=== PATIENT | male | born 1995 | race Two or more races ===

== ENCOUNTER 2021-10-26 13:00 | Inpatient (IN) | payer MEDICAID, OTHER ==
[~2021-10-26] VITALS: Ht 188 cm; Wt 139.7 kg
[2021-10-26 13:56] LABS: Basophils # (auto) 0.1 10 ^3/uL (0-0.2); Basophils % (auto) 0.6 % (0.0-2.0); Eosinophils # (auto) 0.3 10 ^3/uL (0-0.8); Eosinophils % (auto) 3.1 % (0.0-7.0); Hemoglobin 15.3 g/dL (13.5-17.5); Lymphocytes # (auto) 3.4 10 ^3/uL (0.4-5.4); Lymphocytes % (auto) 30.9 % (10.0-50.0); Mean Corpuscular Hemoglobin 28.4 pg (28.0-32.0); Mean Corpuscular Hgb Conc. 32.5 g/dL (32.0-36.0); Mean Corpuscular Volume 87.2 fL (80.0-100.0); Monocytes # (auto) 0.7 10 ^3/uL (0-1.3); Monocytes % (auto) 6.1 % (0.0-12.0); Neutrophils # (auto) 6.5 10 ^3/uL (1.6-8.6); Neutrophils % (auto) 59.3 % (37.0-80.0); Nucleated Red Blood Cells % 0.1 %; Red Blood Cells 5.39 10^6/uL (4.5-5.90); Red Cell Distribution Width 14.6 % (11.8-14.3); White Blood Cell 10.9 10^3/uL (4.4-10.8)
[2021-10-26 14:10] LABS: Albumin 3.9 g/dL (3.4-5.0); Potassium 4.2 mmol/L (3.5-5.1)
[2021-10-26 14:15] LABS: BUN/Creatinine Ratio 13.1; Bilirubin, Total 0.4 mg/dL (0.2-1.0); Total Protein 7.6 g/dL (6.4-8.2)
[2021-10-26] MEDS ORDERED: SODIUM CHLORIDE 0.9% 1,000 ML IVB ONE (14:15)
[2021-10-26] MEDS ORDERED: KETOROLAC TROMETH 30 MG/ML 1ML VIAL IV ONE (14:15)
[2021-10-26 14:54] LABS: Urine Bacteria NONE SEEN /hpf (None Seen); Urine Blood 3+ /uL (Negative); Urine Mucus FEW (None Seen); Urine Specific Gravity 1.022 (1.001-1.035); Urine WBC 17 /hpf (0 - 3)
[2021-10-26] MEDS ORDERED: ACETAMINOPHEN 325 MG TAB PO PRN (21:45)
[2021-10-26] MEDS ORDERED: cefTRIAXone 1GM/50ML D5W 50 ML IV ONE (21:45)
[2021-10-26] MEDS ORDERED: TAMSULOSIN HYDROCHLORIDE 0.4 MG CAP PO ONE (21:45)
[2021-10-26] MEDS ORDERED: MORPHINE SULFATE INJ 2 MG/ml SYRG IV PRN (21:45)
[2021-10-26] MEDS ORDERED: SODIUM CHLORIDE 0.9% 1,000 ML IV ONE (21:45)
[2021-10-26] MEDS ORDERED: TEMAZEPAM 15 MG CAP PO PRN (21:45)
[2021-10-26] MEDS ORDERED: ONDANSETRON HCL 4 MG/2 ML VIAL IV PRN (21:45)
[2021-10-27] MEDS: HYDROcodone-ACET 5/325MG TAB PO PRN ×2 (02:15→10:13)
[2021-10-27 05:23] LABS: Basophils # (auto) 0.1 10 ^3/uL (0-0.2); Basophils % (auto) 0.6 % (0.0-2.0); Eosinophils # (auto) 0.1 10 ^3/uL (0-0.8); Eosinophils % (auto) 0.6 % (0.0-7.0); Hematocrit 43.3 % (41.0-53.0); Hemoglobin 14.2 g/dL (13.5-17.5); Lymphocytes # (auto) 2.6 10 ^3/uL (0.4-5.4); Lymphocytes % (auto) 18.1 % (10.0-50.0); Mean Corpuscular Hemoglobin 28.3 pg (28.0-32.0); Mean Corpuscular Hgb Conc. 32.7 g/dL (32.0-36.0); Mean Corpuscular Volume 86.5 fL (80.0-100.0); Monocytes # (auto) 2.1 10 ^3/uL (0-1.3); Neutrophils # (auto) 9.8 10 ^3/uL (1.6-8.6); Neutrophils % (auto) 66.7 % (37.0-80.0); Red Blood Cells 5.01 10^6/uL (4.5-5.90); Red Cell Distribution Width 14.6 % (11.8-14.3); White Blood Cell 14.6 10^3/uL (4.4-10.8)
[2021-10-27 05:44] LABS: BUN/Creatinine Ratio 13.7; Calcium 8.9 mg/dL (8.5-10.1); Potassium 3.6 mmol/L (3.5-5.1)
[2021-10-27] MEDS ORDERED: PANTOPRAZOLE 40 MG TAB PO SCH (10:00)
[2021-10-27] MEDS ORDERED: KETOROLAC TROMETH 30 MG/ML 1ML VIAL IV PRN (10:45)
[2021-10-27] MEDS ORDERED: TAMSULOSIN HYDROCHLORIDE 0.4 MG CAP PO ONE (11:00)
[2021-10-27] MEDS ORDERED: LEVO500T31 PO (12:44)
[2021-10-27] MEDS ORDERED: KETO10TA PO (12:44)
[2021-10-27] MEDS ORDERED: TAM04C PO (12:44)
[2021-10-27 15:41] VITALS: BP 144/80
[2021-10-27] MEDS ORDERED: cefTRIAXone 1GM/50ML D5W 50 ML IV SCH (21:00)
== END 2021-10-27 15:33 | disposition home or self-care (01) | DRG 463 ==
LOC: ER 13:00 → OVERFLOW 22:12
PROVIDERS: ADMIT Nurse Practitioner; ATTEND Internal Medicine
DX: N13.6 Pyonephrosis (principal); R65.10 Systemic inflammatory response syndrome (SIRS) of non-infectious origin without acute organ dysfunction; E66.01 Morbid (severe) obesity due to excess calories; F32.A Depression, unspecified; Z20.822 Contact with and (suspected) exposure to COVID-19; Q63.1 Lobulated, fused and horseshoe kidney; Z83.3 Family history of diabetes mellitus; Z68.39 Body mass index [BMI] 39.0-39.9, adult
CPT/HCPCS: 36415; 74176; 80048; 80053; 81001; 85025; 96361; 96365; 96375; G0378; J0696; J1885

== ENCOUNTER 2024-05-18 03:29 | Emergency (ER) | payer MEDICAID ==
[~2024-05-18] VITALS: Ht 188 cm; Wt 146.3 kg
[~2024-05-18 03:29] MED LIST: KETO10TA PO; LEVO500T31 PO; TAMS-35 PO
[2024-05-18 04:03] LABS: Urine Bacteria None Seen /hpf (None Seen)
[2024-05-18 04:20] LABS: Urine Blood TRACE /uL (Negative); Urine Clarity Clear (Clear); Urine Color Light-Yellow (Yellow); Urine Protein, UAD Negative (Negative); Urine Specific Gravity 1.017 (1.001-1.035); Urine Squamous Epithelial Cell None Seen /hpf (<5); Urine Urobilinogen Normal (Negative); Urine WBC < 1 /HPF (0-3)
--- NOTE | 2024-05-18 04:32 | ED.PDOC ---
GI ASSESSMENT HPI Comments 29 year old male presents to the ED with a chief complaint of abdominal pain onset 2 weeks. Patient states he has been experiencing constant, diffused abdominal pain for the past 2 weeks, noticed pain worsens after eating. He has been trying to treat with Pepto-Bismol with no improvement of symptoms. Patient also noticed urinary frequency. PMHx HTN, kidney stones, depression. Denies nausea, vomiting, diarrhea, fever, chills. constipation, chest pain, shortness of breath, dysuria, hematuria. No other symptoms or modifying factors present at this time. Chief Complaint: Abdominal Pain Time Seen by MD: 04:03 Primary Care Provider: NONE Reviewed Notes: Medications, Allergies Allergies: Coded Allergies: NO KNOWN ALLERGIES (Unverified , 10/26/21) Home Meds Active Scripts Tamsulosin Hcl (Flomax) 0.4 Mg Cap, 0.4 MG PO QPM for 10 Days, #10 CAP Prov:MICHAEL SALCEDO MD 10/27/21 Ketorolac Tromethamine (Ketorolac Tromethamine) 10 Mg Tab, 10 MG PO TID PRN for 5 Days, #15 TAB Prov:MICHAEL SALCEDO MD 10/27/21 Levofloxacin (Levaquin) 500 Mg Tab, 500 MG PO DAILY for 7 Days, #7 TAB Prov:MICHAEL SALCEDO MD 10/27/21 Information Source: Patient Mode of Arrival: Ambulatory Timing: Weeks Duration: Since onset Prehospital treatment: Other (Pepto-Bismol ) Quality: Aching Vomitus: None Severity: Moderate Recent: None Recent Hx of: None Pain Location: Diffuse Modifying Factors: Nothing Associated sign and symptoms: Abdominal Pain Past Medical History PAST MEDICAL HISTORY: Depression, HTN, Kidney Stones Surgical History: Denies all surgeries Family History Family History: Family hx of DM Social History Smoker: Non-Smoker Alcohol: Denies ETOH Use Drugs: Denies Drug Use Lives In: Home Constitutional: denies: chills, diaphoresis, fatigue, fever, malaise, sweats, weakness, others EENTM: denies: blurred vision, double vision, ear bleeding, ear discharge, ear drainage, ear pain, ear ringing, eye pain, eye redness, hearing loss, mouth pain, mouth swelling, nasal discharge, nose bleeding, nose congestion, nose pain, photophobia, tearing, throat pain, throat swelling, voice changes, others Respiratory: denies: cough, hemoptysis, orthopnea, SOB at rest, shortness of breath, SOB with excertion, stridor, wheezing, others Cardiovascular: denies: chest pain, dizzy spells, diaphoresis, Dyspnea on exertion, edema, irregular heart beat, left arm pain, lightheadedness, palpitations, PND, syncope, others Gastrointestinal: reports: abdominal pain; denies: abdomen distended, blood streaked bowels, constipated, diarrhea, dysphagia, difficulty swallowing, hematemesis, melena, nausea, poor appetite, poor fluid intake, rectal bleeding, rectal pain, vomiting, others Genitourinary: reports: frequency; denies: burning, dysuria, flank pain, hematuria, incontinence, penile discharge, penile sore, pain, testicle pain, testicle swelling, urgency, others Neurological: denies: dizziness, fainting, headache, left sided numbness, left sided weakness, numbness, paresthesia, pre-existing deficit, right sided numbness, right sided weakness, seizure, speech problems, tingling, tremors, weakness, others Musculoskeletal: denies: back pain, gout, joint pain, joint swelling, muscle pain, muscle stiffness, neck pain, others Integumetry: denies: bruises, change in color, change in hair/nails, dryness, laceration, lesions, lumps, rash, wounds, others Allergic/Immunocompromised: denies: Difficulty Healing, Frequent Infections, Hives, Itching, others Hematologic/Lymphatic: denies: anemia, blood clots, easy bleeding, easy bruising, swollen glands, others Endocrine: denies: excessive hunger, excessive sweating, excessive thirst, excessive urination, flushing, intolerance to cold, intolerance to heat, unexplained weight gain, unexplained weight loss, others Psychiatric: denies: anxiety, bipolar disorder, depression, hopeless, panic disorder, schizophrenia, sleepless, suicidal, others All Other Systems: Reviewed and Negative Physical Exam General Appearance: No Apparent Distress, Obese HEENT: Other (Moist mucous membranes) Neck: Full Range of Motion, Non-Tender, Normal Inspection, Supple Respiratory: Lungs Clear, No Accessory Muscle Use, No Respiratory Distress, Normal Breath Sounds Cardiovascular: No Edema, No JVD, Regular Rate/Rhythm Breast Exam: Deferred Gastrointestinal: Non Tender, Soft Genitalia: Deferred Pelvic: Deferred Rectal: Deferred Extremities: Normal inspection, Normal range of motion, Non-tender, No pedal edema Neurologic: Alert (Oriented x4), Normal Affect, Normal Mood, Other (Ambulatory without difficulty. No gross focal deficit.) Cerebellar Function: NOT DONE Reflexes: NOT DONE Skin: Dry, Normal Color, Warm Lymphatic: NOT DONE Was a procedure done? Was a procedure done?: No GI differential Dx Differential Diagnosis: Constipation, Diverticular disease, Gastritis/PUD, Gastroenteritis, Inflammatory BD, Ischemic Bowel, UTI, Urolithiasis, Dehydration, Electrolyte Imbalance, Bacterial, Parasitic, Viral, Impaction, Stress Ulcer, Kidney Stone X-Ray, Labs, Meds, VS Vital Signs Date Time Temp Pulse Resp B/P (MAP) Pulse Ox O2 Delivery O2 Flow Rate FiO2 05/18/24 05:11 98.2 90 14 155/97 (116) 96 98.2 05/18/24 03:53 98.7 95 18 149/101 (117) 98 Lab Test 05/18/24 04:21 05/18/24 04:00 Range/Units White Blood Count 14.3 H 4.4-10.8 10^3/uL Red Blood Count 5.52 4.5-5.90 10^6/uL Hemoglobin 16.2 13.5-17.5 g/dL Hematocrit 48.1 41.0-53.0 % Mean Corpuscular Volume 87.2 80.0-100.0 fL Mean Corpuscular Hemoglobin 29.4 28.0-32.0 pg Mean Corpuscular Hemoglobin Concent 33.7 32.0-36.0 g/dL Red Cell Distribution Width 14.3 11.8-14.3 % Platelet Count 292 140-450 10^3/uL Mean Platelet Volume 7.8 6.9-10.8 fL Neutrophils (%) (Auto) 42.0 37.0-80.0 % Lymphocytes (%) (Auto) 43.3 10.0-50.0 % Monocytes (%) (Auto) 10.1 0.0-12.0 % Eosinophils (%) (Auto) 4.0 0.0-7.0 % Basophils (%) (Auto) 0.6 0.0-2.0 % Neutrophils # (Auto) 6.0 1.6-8.6 10 ^3/uL Lymphocytes # (Auto) 6.2 H 0.4-5.4 10 ^3/uL Monocytes # (Auto) 1.4 H 0-1.3 10 ^3/uL Eosinophils # (Auto) 0.6 0-0.8 10 ^3/uL Basophils # (Auto) 0.1 0-0.2 10 ^3/uL Nucleated Red Blood Cells 0.1 % Sodium Level 138 136-145 mmol/L Potassium Level 4.0 3.5-5.1 mmol/L Chloride Level 108 H 98-107 mmol/L Carbon Dioxide Level 21 20-31 mmol/L Anion Gap 9 5-15 Blood Urea Nitrogen 10 9-23 mg/dL Creatinine 0.70 0.700-1.30 mg/dL Glomerular Filtration Rate Calc 129 >90 mL/min BUN/Creatinine Ratio 14.3 10.0-20.0 Serum Glucose 99 74-106 mg/dL Calcium Level 10.2 8.7-10.4 mg/dL Total Bilirubin 0.6 0.2-1.0 mg/dL Aspartate Amino Transferase (AST) 26 13-40 U/L Alanine Aminotransferase (ALT) 61 H 7-40 U/L Alkaline Phosphatase 93 46-116 U/L Total Protein 7.6 5.7-8.2 g/dL Albumin 4.9 H 3.2-4.8 g/dL Lipase 33 12-53 U/L Urine Color Light-yellow Yellow Urine Clarity Clear Clear Urine pH 6.0 5.0-9.0 Urine Specific [place] 1.017 1.001-1.035 Urine Protein Negative Negative Urine Ketones Negative Negative Urine Blood Trace H Negative /uL Urine Nitrite Negative Negative Urine Bilirubin Negative Negative Urine Urobilinogen Normal Negative mg/dL Urine Leukocyte Esterase Negative Negative /uL Urine RBC 1 0 - 3 /hpf Urine Microscopic WBC < 1 0-3 /HPF Urine Squamous Epithelial Cells None seen <5 /hpf Urine Bacteria None seen None Seen /hpf Urine Glucose Normal Normal mg/dL ORDERING PHYSICIAN: MARYANNE EDEN MD PROCEDURE(s): ABPL - CT AB PEL WO CON-NO ORAL OR IV REASON: mid abdominal pain ORDER NUMBER(s): [id number], ACCESSION NUMBER(s): [id number] Exam: CT CT AB PEL WO CON-NO ORAL OR IV History: mid abdominal pain Comparison Study: CT scan of the abdomen pelvis dated 10/26/2021. Technique: Multidetector spiral CT of the abdomen and pelvis was performed from lung bases to pubic symphysis. Imaging was performed without intravenous contrast. Coronal and sagittal multiplanar reformats were obtained from the axial data set by the technologist. Radiation Dose : 1. Abdomen/Pelvis: CTDIvol 27.3 mGy, DLP 1888.1 mGy*cm. Findings: Evaluation of vasculature and solid organs is limited due to lack of intravenous contrast use. Lung Bases: Lung bases are clear. Visualized portions of the heart and pericardium are unremarkable. Liver: The liver is normal in size. No focal lesions. Gallbladder and Biliary Tree: The gallbladder is unremarkable. No intrahepatic or extrahepatic biliary ductal dilatation. Spleen: Unremarkable Pancreas: The pancreas is grossly unremarkable. Adrenal Glands: Unremarkable Kidneys: Horseshoe kidney. Punctate nonobstructive calculus in the right moiety. Punctate nonobstructive calculus in the left moiety. GI tract: The stomach is grossly normal in appearance. No evidence of small bowel wall thickening or abnormal dilatation to suggest bowel obstruction. The colon is unremarkable. The appendix is not visualized, however no inflammatory changes in the right lower quadrant to suggest acute appendicitis. Peritoneum/mesentery/retroperitoneum. No evidence of free intraperitoneal air. No ascites. No evidence of suspicious lymphadenopathy. Abdominal Wall: Fat containing umbilical hernia. Vasculature: The visualized abdominal aorta is normal in size and caliber. Evaluation of abdominal and pelvic vessels is limited due to lack of intravenous contrast. Urinary Bladder: Grossly unremarkable for degree of distention. Pelvic Organs: Unremarkable Musculoskeletal: No aggressive focal bony lesions, acute fractures or dislocation. IMPRESSION: 1. No acute abdominal or pelvic findings. 2. Horseshoe kidney. Punctate nonobstructive intrarenal calculi in both kidneys. ATED BY: ANTOINETTE EATON MD DICTATED DATE/TIME: 05/18/24458 SIGNED BY: ANTOINETTE EATON MD SIGNED DATE/TIME: 05/18/24458 X-Ray, Labs, Meds, VS Comment 29-year-old male with a history of hypertension and kidney stones complaining of abdominal pain Vitals remarkable for BP 149/101 Exam unremarkable Rhythm strip independently interpreted by me: Sinus rhythm, rate 95, no ectopy. CT abdomen and pelvis: IMPRESSION: 1. No acute abdominal or pelvic findings. 2. Horseshoe kidney. Punctate nonobstructive intrarenal calculi in both kidneys. CBC remarkable for WBC 14.3, CMP remarkable for ALT 61, lipase normal, UA unremarkable Patient treated with the following in the ED: Protonix 40 mg IV, viscous lidocaine 10 mL, 10 mL, Maalox 30 mL p.o.. On re-evaluation, patient states pain has improved. Vitals are stable. Repeat abdominal exam remains benign. Hospitalization was considered, however patient had rapid improvement of sy mptoms with treatment in the ED, and I no longer feel hospitalization is necessary. Patient now appears stable for discharge with close outpatient follow-up with his primary physician for referral to a GI specialist. Rx omeprazole, Bentyl Time of 1ST Reevaluation: 04:33 Reevaluation 1ST: Unchanged Patient Education/Counseling: Diagnosis, Treatment, Prognosis Family Education/Counseling: No Family Present Additional Information The following tests were ordered, and results were reviewed by me: UA, CBC, CMP, LIPASE, CT AB PEL WO CONTRAST I reviewed and agreed with the following test results read by other providers: CT AB PEL WO CONTRAST I discussed treatment and results with medical personnel and: patient, Departure 1 Departure Time of Disposition: 05:33 Impression: Primary Impression: Abdominal pain Qualified Codes: R10.84 - Generalized abdominal pain Disposition: 01 HOME / SELF CARE / HOMELESS Condition: Stable Additional Instructions: Your blood and urine tests were unremarkable. Your CT scan showed a horseshoe kidney and kidney stones. These are incidental findings, do not require any acu te treatment, and are unlikely the cause of your abdominal pain. I have prescribed medication to treat your symptoms. Follow-up with your primary doctor in 1-2 days for referral to a global [facility] [employer] for further evaluation of your abdominal symptoms. Return to ER for persistent or worsening pain. [place] [address] Ph: [phone] DIAGNOSTIC IMAGING Diagnostic Imaging Report : [id number] Signed PATIENT: ALINA GARCIA ACCT: [id number] UNIT: [id number] : 1995 LOC: ER ROOM / BED: / AGE / SEX: 29 / M ADM STATUS: REG ER SERVICE [id number] ORDERING PHYSICIAN: MARYANNE EDEN MD PROCEDURE(s): ABPL - CT AB PEL WO CON-NO ORAL OR IV REASON: mid abdominal pain ORDER NUMBER(s): [id number], ACCESSION NUMBER(s): [id number] Exam: CT CT AB PEL WO CON-NO ORAL OR IV History: mid abdominal pain Comparison Study: CT scan of the abdomen pelvis dated 10/26/2021. Technique: Multidetector spiral CT of the abdomen and pelvis was performed from lung bases to pubic symphysis. Imaging was performed without intravenous contrast. Coronal and sagittal multiplanar reformats were obtained from the axial data set by the technologist. Radiation Dose : 1. Abdomen/Pelvis: CTDIvol 27.3 mGy, DLP 1888.1 mGy*cm. Findings: Evaluation of vasculature and solid organs is limited due to lack of intravenous contrast use. Lung Bases: Lung bases are clear. Visualized portions of the heart and pericardium are unremarkable. Liver: The liver is normal in size. No focal lesions. Gallbladder and Biliary Tree: The gallbladder is unremarkable. No intrahepatic or extrahepatic biliary ductal dilatation. Spleen: Unremarkable Pancreas: The pancreas is grossly unremarkable. Adrenal Glands: Unremarkable Kidneys: Horseshoe kidney. Punctate nonobstructive calculus in the right moiety. Punctate nonobstructive calculus in the left moiety. GI tract: The stomach is grossly normal in appearance. No evidence of small bowel wall thickening or abnormal dilatation to suggest bowel obstruction. The colon is unremarkable. The appendix is not visualized, however no inflammatory changes in the right lower quadrant to suggest acute appendicitis. Peritoneum/mesentery/retroperitoneum. No evidence of free intraperitoneal air. No ascites. No evidence of suspicious lymphadenopathy. Abdominal Wall: Fat containing umbilical hernia. Vasculature: The visualized abdominal aorta is normal in size and caliber. Evaluation of abdominal and pelvic vessels is limited due to lack of intravenous contrast. Urinary Bladder: Grossly unremarkable for degree of distention. Pelvic Organs: Unremarkable Musculoskeletal: No aggressive focal bony lesions, acute fractures or dislocation. IMPRESSION: 1. No acute abdominal or pelvic findings. 2. Horseshoe kidney. Punctate nonobstructive intrarenal calculi in both kidneys. e-Prescriptions Dicyclomine Hcl (BENTYL CAPSULE) 10 Mg Cp 2 CAP PO Q6HP PRN, #60 CAP 11 Refills prn abdominal pain Prov: MARYANNE EDEN MD 05/18/24 Omeprazole Magnesium (Omeprazole) 20 Mg Tab 20 MG PO DAILY, #30 TAB Prov: MARYANNE EDEN MD 05/18/24 Discharged With: Self Critical Care Note Critical Care Time?: No Stability Stability form required: No Heart Score Heart Score: Heart Score Response (Comments) Value History N/A 0 EKG N/A 0 Age N/A 0 Risk Factors N/A 0 Troponin N/A 0 Total 0 I personally scribed for MARYANNE EDEN MD ([email or web address]) on 05/18/24 at 04:32. Electronically submitted by Ronda Henry ([email or web address]). I personally scribed for MARYANNE EDEN MD ([email or web address]) on 05/18/24 at 04:48. Electronically submitted by Ronda Henry ([email or web address]). I personally scribed for MARYANNE EDEN MD ([email or web address]) on 05/18/24 at 05:19. Electronically submitted by Ronda Henry ([email or web address]). MARYANNE EDEN MD May 18, 2024 04:32
[2024-05-18 04:41] LABS: Basophils # (auto) 0.1 10 ^3/uL (0-0.2); Basophils % (auto) 0.6 % (0.0-2.0); Eosinophils # (auto) 0.6 10 ^3/uL (0-0.8); Hematocrit 48.1 % (41.0-53.0); Hemoglobin 16.2 g/dL (13.5-17.5); Lymphocytes # (auto) 6.2 10 ^3/uL (0.4-5.4); Lymphocytes % (auto) 43.3 % (10.0-50.0); Mean Corpuscular Hemoglobin 29.4 pg (28.0-32.0); Mean Corpuscular Hgb Conc. 33.7 g/dL (32.0-36.0); Mean Corpuscular Volume 87.2 fL (80.0-100.0); Monocytes # (auto) 1.4 10 ^3/uL (0-1.3); Monocytes % (auto) 10.1 % (0.0-12.0); Nucleated Red Blood Cells % 0.1 %; Platelet Count (auto) 292 10^3/uL (140-450); Red Blood Cells 5.52 10^6/uL (4.5-5.90); Red Cell Distribution Width 14.3 % (11.8-14.3); White Blood Cell 14.3 10^3/uL (4.4-10.8)
[2024-05-18 04:59] LABS: Alkaline Phosphatase 93 U/L (46-116); Anion Gap 9 (5-15); Aspartate Aminotransferase 26 U/L (13-40); BUN/Creatinine Ratio 14.3 (10.0-20.0); Bilirubin, Total 0.6 mg/dL (0.2-1.0); Blood Urea Nitrogen 10 mg/dL (9-23); Calcium 10.2 mg/dL (8.7-10.4); Carbon Dioxide 21 mmol/L (20-31); Glucose 99 mg/dL (74-106); Lipase 33 U/L (12-53); Sodium 138 mmol/L (136-145); Total Protein 7.6 g/dL (5.7-8.2)
--- NOTE | 2024-05-18 05:02 | DVH ---
Exam: CT CT AB PEL WO CON-NO ORAL OR IV History: mid abdominal pain Comparison Study: CT scan of the abdomen pelvis dated 10/26/2021. Technique: Multidetector spiral CT of the abdomen and pelvis was performed from lung bases to pubic s ymphysis. Imaging was performed without intravenous contrast. Coronal and sagittal multiplanar refor mats were obtained from the axial data set by the technologist. Radiation Dose : 1. Abdomen/Pelvis: CTDIvol 27.3 mGy, DLP 1888.1 mGy*cm. Findings: Evaluation of vasculature and solid organs is limited due to lack of intravenous contrast use. Lung Bases: Lung bases are clear. Visualized portions of the heart and pericardium are unremarkable. Liver: The liver is normal in size. No focal lesions. Gallbladder and Biliary Tree: The gallbladder is unremarkable. No intrahepatic or extrahepatic bilia ry ductal dilatation. Spleen: Unremarkable Pancreas: The pancreas is grossly unremarkable. Adrenal Glands: Unremarkable Kidneys: Horseshoe kidney. Punctate nonobstructive calculus in the right moiety. Punctate nonobstruc tive calculus in the left moiety. GI tract: The stomach is grossly normal in appearance. No evidence of small bowel wall thickening or abnormal dilatation to suggest bowel obstruction. The colon is unremarkable. The appendix is not vi sualized, however no inflammatory changes in the right lower quadrant to suggest acute appendicitis. Peritoneum/mesentery/retroperitoneum. No evidence of free intraperitoneal air. No ascites. No evidenc e of suspicious lymphadenopathy. Abdominal Wall: Fat containing umbilical hernia. Vasculature: The visualized abdominal aorta is normal in size and caliber. Evaluation of abdominal a nd pelvic vessels is limited due to lack of intravenous contrast. Urinary Bladder: Grossly unremarkable for degree of distention. Pelvic Organs: Unremarkable Musculoskeletal: No aggressive focal bony lesions, acute fractures or dislocation. IMPRESSION: 1. No acute abdominal or pelvic findings. 2. Horseshoe kidney. Punctate nonobstructive intrarenal calculi in both kidneys.
[2024-05-18 05:03] LABS: Alanine Aminotransferase 61 U/L (7-40); Albumin 4.9 g/dL (3.2-4.8); Chloride 108 mmol/L (98-107)
[2024-05-18 05:11] VITALS: BP 155/97; PULSE 90; RESP 14; TEMP 98.2; O2SAT 96
[2024-05-18] MEDS ORDERED: OMEP-434 PO (05:36)
[2024-05-18] MEDS ORDERED: DICY10CA PO (05:36)
[2024-05-18] MEDS: DONNATAL 5ml ORAL Elix (BELLADONNA ALK-PHENOBARB) PO ONE (05:37)
[2024-05-18] MEDS: PANTOPRAZOLE 40 MG/10 ML VIAL INJ IV ONE (05:42)
[2024-05-18] MEDS: MAALOX PLUS or MAALOX 30 ML PO ONE (05:42)
[2024-05-18] MEDS: LIDOCAINE VISCOUS 2% 15ML UD PO ONE (05:42)
== END 2024-05-18 05:53 | disposition home or self-care (01) ==
LOC: ER 03:29
DX: R10.84 Generalized abdominal pain (principal); I10 Essential (primary) hypertension; F32.9 Major depressive disorder, single episode, unspecified; Z87.442 Personal history of urinary calculi
CPT/HCPCS: 36415; 74176; 80053; 81001; 83690; 85025; 96374; 99285; J2470

== ENCOUNTER 2024-07-07 02:34 | Emergency (ER) | payer MEDICAID ==
[~2024-07-07] VITALS: Ht 188 cm; Wt 145.5 kg
[~2024-07-07 02:34] MED LIST changes: +DICY10CA PO; +OMEP-434 PO
--- NOTE | 2024-07-07 03:48 | ED.PDOC ---
Back pain HPI HPI Comments Pt presents to the ER due to back pain x3 weeks. Pt reports he had a cough x3 weeks ago and feels he "threw his back out." Pt states he was seen at urgent care 1 week ago was prescribed naproxen, gabapentin, and methocarbamol he reports no relief in lower back pain. Denies numbness, weakness, loss of bowel or bladder control, foot drop, saddle anesthesia, or known significant injury Chief Complaint: Back Pain Time Seen by MD: 02:45 Primary Care Provider: Dr. Maritza Rhoades Reviewed Notes: Nurses Notes, Medications, Allergies Allergies: Coded Allergies: NO KNOWN ALLERGIES (Unverified , 10/26/21) Home Meds Active Scripts Dicyclomine Hcl (BENTYL CAPSULE) 10 Mg Cp, 2 CAP PO Q6HP PRN, #60 CAP 11 Refills prn abdominal pain Prov:MARYANNE EDEN MD 05/18/24 Omeprazole Magnesium (Omeprazole) 20 Mg Tab, 20 MG PO DAILY, #30 TAB Prov:MARYANNE EDEN MD 05/18/24 Tamsulosin Hcl (Flomax) 0.4 Mg Cap, 0.4 MG PO QPM for 10 Days, #10 CAP Prov:MICHAEL SALCEDO MD 10/27/21 Ketorolac Tromethamine (Ketorolac Tromethamine) 10 Mg Tab, 10 MG PO TID PRN for 5 Days, #15 TAB Prov:MICHAEL SALCEDO MD 10/27/21 Levofloxacin (Levaquin) 500 Mg Tab, 500 MG PO DAILY for 7 Days, #7 TAB Prov:MICHAEL SALCEDO MD 10/27/21 Information Source: Patient Mode of Arrival: Ambulatory Past Medical History PAST MEDICAL HISTORY: Depression, HTN, Kidney Stones Surgical History: Denies all surgeries Family History Family History: Family hx of DM Social History Smoker: Non-Smoker Alcohol: Denies ETOH Use Drugs: Denies Drug Use Lives In: Home Constitutional: denies: chills, diaphoresis, fatigue, fever, malaise, sweats, weakness, others EENTM: denies: blurred vision, double vision, ear bleeding, ear discharge, ear drainage, ear pain, ear ringing, eye pain, eye redness, hearing loss, mouth pain, mouth swelling, nasal discharge, nose bleeding, nose congestion, nose pain, photophobia, tearing, throat pain, throat swelling, voice changes, others Respiratory: denies: cough, hemoptysis, orthopnea, SOB at rest, shortness of breath, SOB with excertion, stridor, wheezing, others Cardiovascular: denies: chest pain, dizzy spells, diaphoresis, Dyspnea on exertion, edema, irregular heart beat, left arm pain, lightheadedness, palpitations, PND, syncope, others Gastrointestinal: denies: abdomen distended, abdominal pain, blood streaked bowels, constipated, diarrhea, dysphagia, difficulty swallowing, hematemesis, melena, nausea, poor appetite, poor fluid intake, rectal bleeding, rectal pain, vomiting, others Neurological: denies: dizziness, fainting, headache, left sided numbness, left sided weakness, numbness, paresthesia, pre-existing deficit, right sided numbness, right sided weakness, seizure, speech problems, tingling, tremors, weakness, others Musculoskeletal: reports: back pain; denies: gout, joint pain, joint swelling, muscle pain, muscle stiffness, neck pain, others Integumetry: denies: bruises, change in color, change in hair/nails, dryness, laceration, lesions, lumps, rash, wounds, others Allergic/Immunocompromised: denies: Difficulty Healing, Frequent Infections, Hives, Itching, others Hematologic/Lymphatic: denies: anemia, blood clots, easy bleeding, easy br uising, swollen glands, others Endocrine: denies: excessive hunger, excessive sweating, excessive thirst, excessive urination, flushing, intolerance to cold, intolerance to heat, unexplained weight gain, unexplained weight loss, others Psychiatric: denies: anxiety, bipolar disorder, depression, hopeless, panic disorder, schizophrenia, sleepless, suicidal, others Physical Exam General Appearance: No Apparent Distress, Normal HEENT: Pharynx Normal Neck: Full Range of Motion, Non-Tender Respiratory: Lungs Clear, No Respiratory Distress, Normal Breath Sounds Cardiovascular: No Murmur, Normal Peripheral Pulses, Regular Rate/Rhythm Breast Exam: Deferred Gastrointestinal: Non Tender, Soft Genitalia: Deferred Pelvic: Deferred Rectal: Deferred Extremities: Normal capillary refill, Normal inspection, Normal range of motion, Non-tender, No pedal edema Musculoskeletal : Location: Bilateral Extremity Location: Back (Tenderness noted over bilateral lower back musculature no tenderness palpated over L1 through L5 negative straight leg raise bilateral strength sensory motion intact positive pedal pulses) Apperance: Normal Neurologic: Alert, education consultant II-XII nml as Tested, No Motor Deficits, Normal Affect, Normal Mood, No Sensory Deficits Cerebellar Function: Normal Reflexes: Normal Skin: Dry, Normal Color, Warm Lymphatic: No Adenopathy Was a procedure done? Was a procedure done?: No Back Pain Differential Dx Differential Diagnosis: Fracture, Musculoskeletal Pain X-Ray, Labs, Meds, VS Vital Signs Date Time Temp Pulse Resp B/P (MAP) Pulse Ox O2 Delivery O2 Flow Rate FiO2 07/07/24 03:58 99.0 81 18 134/91 (105) 96 99.0 07/07/24 03:58 81 18 96 Room Air 07/07/24 02:48 98.1 79 16 149/109 (122) 97 98.1 Current Medications Medications (Trade) Dose Ordered Sig/Kristen Route Start Time Stop Time Status Last Admin Ketorolac Tromethamine (Toradol Injection) 60 mg ONCE ONCE IM 07/07/24 03:45 07/07/24 03:46 DC 07/07/24 03:52 Methylprednisolone Sodium Succinate (Solu Medrol) 125 mg ONCE ONCE IM 07/07/24 03:45 07/07/24 03:46 DC 07/07/24 03:53 Acetaminophen/ Hydrocodone Bitart ([place] 5/325MG Tab) 2 tab ONCE ONCE PO 07/07/24 03:45 07/07/24 03:46 DC 07/07/24 03:52 X-Ray, Labs, Meds, VS Comment FOR SPINE X-RAY SHOWS NO OSSEOUS LESIONS, SUBLUXATIONS THERE HAS BEEN SHOULD POSSIBLE FRACTURE OF THE COCCYX CT SCAN WAS RECOMMENDED RESULTED SHOWS NO ACUTE FRACTURES NO SUSPICIOUS LESIONS. CONCERNS. PATIENT WAS GIVEN TORADOL 60 MG IM DECADRON 10 MG IM AND NORCO 10 MG P.O. HE REPORTS IMPROVEMENT IN PAIN SYMPTOMS REQUESTING DISCHARGE AT THIS TIME. ADVISED HIM TO CONTINUE THE MUSCLE RELAXANT HE HAS BEEN HOME PRESCRIBED ADVISED TO FOLLOW UP WITH HIS PCP IN 1-2 DAYS CONSIDER FURTHER IMAGING SAYS HE WAS MRIS THAT THIS PERSIST. ADVISED TO RETURN TO THE OFF INCREASING PAIN, NUMBNESS, WEAKNESS SADDLE ANESTHESIA, LOSS OF BOWEL OR BLADDER CONTROL, OR FOOT DROP. PATIENT INDICATES UNDERSTANDING AND AGREES WITH DISCHARGE PLAN OF CARE. Time of 1ST Reevaluation: 03:48 Reevaluation 1ST: Unchanged Time of 2ND Reevaluation: 06:25 Reevaluation 2ND: Improved Patient Education/Counseling: Diagnosis, Treatment, Prognosis, Need For Follow Up Family Education/Counseling: Diagnosis, Treatment, Prognosis, Need For Follow Up Departure 1 Departure Time of Disposition: 06:23 Impression: Primary Impression: Lumbar sprain Qualified Codes: S33.5XXA - Sprain of ligaments of lumbar spine, initial encounter Disposition: HOME / SELF CARE / HOMELESS Condition: Stable Discharged With: Self Critical Care Note Critical Care Time?: No Stability Stability form required: ABIEL Sprague Jul 07, 2024 03:48
[2024-07-07] MEDS: HYDROcodone-ACET 5/325MG TAB PO ONE (03:52)
[2024-07-07] MEDS: KETOROLAC TROMETH 60MG/2ML VIAL IM ONE (03:52)
[2024-07-07] MEDS: methylPREDNISolone SOD SUCC 125 MG/2 ML VL IM ONE (03:53)
[2024-07-07 03:58] VITALS: BP 134/91; PULSE 81; RESP 18; TEMP 99; O2SAT 96
--- NOTE | 2024-07-07 05:02 | DVH ---
INDICATION: low back pain COMPARISON: None TECHNIQUE: 3 views of the lumbar spine were obtained. FINDINGS: The lumbar vertebral alignment is normal. The intervertebral disc spaces are well-maintained. No significant facet arthropathy is noted. Vertebral body heights in the lumbar spine are maintained. No acute fracture. There is angulation de formity of the coccyx. This could be congenital however fracture is not excluded. The paravertebral soft tissues are grossly unremarkable. IMPRESSION: 1. Angulation deformity in the coccyx for which fracture and/or malalignment is not excluded. CT of the sacrum including the coccyx is recommended.
--- NOTE | 2024-07-07 06:14 | DVH ---
Exam: CT PELVIS WO CONTRAST History: Questionable finding on lumbar x-ray of coccyx Comparison Study: Radiographs of the lumbar spine performed same date. TECHNIQUE: Multidetector CT of the pelvis was performed from the iliac crests through the proximal fe murs. Imaging was performed without IV contrast using axial images. Coronal and sagittal reformats we re obtained from the axial data set by the technologist. Radiation Dose Information: CT Dose: CTDI volume is 38.9 mGy. Dose-length product is 1273.4 mGy*cm FINDINGS: Bones /joints: No acute fracture. Specifically, no coccygeal or sacral fracture. Anterior angulation of the coccyx at the sacrococcygeal junction is noted. Joint spaces are maintained. Soft tissues: No soft tissue abnormality. No fluid collection IMPRESSION: 1. No evidence of acute sacral or coccygeal fracture. Anterior angulation of the coccyx at the sacro coccygeal junction is nonspecific. This can be a normal variant, or seen in the setting of repetitiv e stress or due to old injury. Radiation optimization: All CT scans at this facility use at least one of these dose optimization nai hniques: automated exposure control mA and/or kV adjustment per patient size (includes targeted exam s where dose is matched to clinical indication) or iterative reconstruction.
== END 2024-07-07 06:31 | disposition home or self-care (01) ==
LOC: ER 02:34
DX: S33.5XXA Sprain of ligaments of lumbar spine, initial encounter (principal); I10 Essential (primary) hypertension; F32.9 Major depressive disorder, single episode, unspecified; Z79.899 Other long term (current) drug therapy; X58.XXXA Exposure to other specified factors, initial encounter; Y93.89 Activity, other specified; Y92.89 Other specified places as the place of occurrence of the external cause; Y99.8 Other external cause status
CPT/HCPCS: 72100; 72192; 96372; 99285; J1885; J2919